=== PATIENT | male | born 1990 | race Caucasian/White ===

== ENCOUNTER 2021-03-27 21:24 | Emergency (ER) | payer SELFPAY ==
[~2021-03-27] VITALS: Ht 190.5 cm; Wt 90.7 kg
[~2021-03-27 21:24] MED LIST: ZANTAC150 MG PO
== END 2021-03-27 23:00 | disposition left against medical advice (07) ==
LOC: ED 21:24
DX: H57.11 Ocular pain, right eye (principal); R06.02 Shortness of breath; Z53.21 Procedure and treatment not carried out due to patient leaving prior to being seen by health care provider

== ENCOUNTER 2021-10-12 20:45 | Emergency (ER) | payer OTHER ==
[~2021-10-12] VITALS: Ht 190.5 cm; Wt 99.8 kg
[2021-10-12] MEDS ORDERED: ADDERALL 20 MG20 MG PO (20:55)
[2021-10-12 21:41] LABS: BASO % 0.3 % (0.0-1.0); EOS # 0.1 10*3/uL (0.0-0.4); EOS % 0.9 % (1.0-4.0); HEMATOCRIT 41.4 % (42.0-52.0); LYMPH # 2.1 10*3/uL (1.3-4.4); LYMPH % 28.1 % (27.0-41.0); MEAN CELL VOLUME 84.7 fl (80.0-94.0); MEAN CORPUSCULAR HGB 30.1 pg (27.0-31.0); MEAN CORPUSCULAR HGB CONC 35.5 g/dl (33.0-37.0); MEAN PLATELET VOLUME 10.2 fl (9.6-12.3); MONO # 0.8 10*3/uL (0.1-1.0); MONO % 10.8 % (3.0-9.0); NEUT # 4.5 10*3/uL (2.3-7.9); NEUT % 59.8 % (47.0-73.0); PLATELET COUNT AUTOMATED 353 10*3/uL (130-400); RED BLOOD COUNT 4.89 10*6/uL (4.50-5.90); RED CELL DISTRI WIDTH 12.4 % (0-14.5); WHITE BLOOD COUNT 7.5 10*3/uL (4.8-10.8)
[2021-10-12 21:57] LABS: ALKALINE PHOSPHATASE 62 U/L (45-117); BUN 21 mg/dl (7-24); CHLORIDE 107 mmol/L (98-107); POTASSIUM 3.5 mmol/L (3.5-5.1); SGOT/AST 103 IU/L (3-35); SGPT/ALT 214 U/L (12-78); SODIUM 141 mmol/L (136-145); TOTAL PROTEIN 7.4 gm/dL (6.4-8.2)
[2021-10-12] MEDS ORDERED: KENALOG 0.025%15 GM T (22:11)
== END 2021-10-12 22:24 | disposition home or self-care (01) ==
LOC: ED 20:45
PROVIDERS: Physician Assistant
DX: T65.891A Toxic effect of other specified substances, accidental (unintentional), initial encounter (principal); T20.55XA Corrosion of first degree of scalp [any part], initial encounter; Y92.89 Other specified places as the place of occurrence of the external cause

== ENCOUNTER 2024-01-22 14:22 | Inpatient (IN) | payer SELFPAY ==
[~2024-01-22] VITALS: Ht 190.5 cm; Wt 93.0 kg
[~2024-01-22 14:22] MED LIST changes: +ADDERALL 20 MG20 MG PO; +KENALOG 0.025%15 GM T
[2024-01-22 14:29] VITALS: BP 113/91
[2024-01-22] MEDS ORDERED: SODIUM CHLORIDE 0.9% 1,000 ML IV ONE (14:45)
[2024-01-22] MEDS ORDERED: MORPHINE Sulfate 2 MG/ML SYR IV ONE (14:45)
[2024-01-22] MEDS ORDERED: IOHEXOL 300 MG/ML 100 ML VIAL IV ONE (14:50)
[2024-01-22] MEDS ORDERED: Ondansetron Hydrochloride 4 MG/2 ML VIAL IV ONE (15:10)
[2024-01-22 15:22] LABS: BASO % 0.1 % (0.0-1.0); HEMATOCRIT 38.8 % (42.0-52.0); LYMPH # 2.4 10*3/uL (1.3-4.4); LYMPH % 31.8 % (27.0-41.0); MEAN CELL VOLUME 84.3 fl (80.0-94.0); MEAN CORPUSCULAR HGB 29.8 pg (27.0-31.0); MEAN CORPUSCULAR HGB CONC 35.3 g/dl (33.0-37.0); MONO # 1.4 10*3/uL (0.1-1.0); MONO % 17.7 % (3.0-9.0); NEUT # 3.8 10*3/uL (2.3-7.9); NEUT % 50.1 % (47.0-73.0); PLATELET COUNT AUTOMATED 257 10*3/uL (130-400); RED CELL DISTRI WIDTH 12.2 % (0-14.5); WHITE BLOOD COUNT 7.7 10*3/uL (4.8-10.8)
[2024-01-22 15:44] LABS: ALKALINE PHOSPHATASE 56 U/L (46-116); BUN 18 mg/dl (9-23); CHLORIDE 104 mmol/L (98-107); LIPASE 25 U/L (12-53); POTASSIUM 3.3 mmol/L (3.4-5.1); SGPT/ALT 28 U/L (5-49); TOTAL PROTEIN 6.5 gm/dL (6.0-8.0)
[2024-01-22 15:47] LABS: ETHYL ALCOHOL < 3.0 mg/dl (<3)
[2024-01-22] MEDS ORDERED: HYDROmorphONE Hydrochloride 0.5 MG/0.5 ML SYRINGE IV ONE (17:10)
[2024-01-22 17:16] VITALS: BP 97/45
[2024-01-22] MEDS ORDERED: MAGNESIUM SULFATE 100 ML IV ONE (18:50)
[2024-01-22] MEDS ORDERED: POTASSIUM CHLORIDE IN WATER 100 ML IV SCH (19:00)
[2024-01-22 19:32] VITALS: BP 99/54
[2024-01-22] MEDS ORDERED: SODIUM CHLORIDE 0.9% 500 ML IV ONE ×2 (19:50→21:55)
[2024-01-22] MEDS ORDERED: Dicyclomine Hydrochloride 20 MG TAB PO SCH (20:40)
[2024-01-22] MEDS ORDERED: SODIUM CHLORIDE 0.9% 1,000 ML IV SCH (21:45)
[2024-01-22] MEDS ORDERED: Ciprofloxacin Hydrochloride 500 MG TAB PO SCH (22:00)
[2024-01-23] VITALS (8 sets, daily range): BP systolic 83–111; BP diastolic 34–62
[2024-01-23] MEDS ORDERED: Ketorolac Tromethamine 15 MG/ML VIAL IV SCH
[2024-01-23 00:17] LABS: URINE AMPHETAMINES Positive (1000ng/ml); URINE BARBITURATES Negative (200ng/ml); URINE BENZODIAZEPINES Negative (200ng/ml); URINE CANNABINOIDS (THC) Negative (50ng/ml); URINE COCAINE Negative (300ng/ml); URINE METHADONE Negative (300ng/ml); URINE OPIATES Positive (300ng/ml); URINE PHENCYCLIDINE Negative (25ng/ml)
[2024-01-23 06:33] LABS: HEMATOCRIT 36.1 % (42.0-52.0); MEAN CELL VOLUME 86.8 fl (80.0-94.0); MEAN CORPUSCULAR HGB 29.3 pg (27.0-31.0); MEAN CORPUSCULAR HGB CONC 33.8 g/dl (33.0-37.0); MEAN PLATELET VOLUME 10.1 fl (9.6-12.3); PLATELET COUNT AUTOMATED 188 10*3/uL (130-400); RED BLOOD COUNT 4.16 10*6/uL (4.50-5.90); RED CELL DISTRI WIDTH 12.5 % (0-14.5); WHITE BLOOD COUNT 3.8 10*3/uL (4.8-10.8)
[2024-01-23 06:37] LABS: MANUAL DIFF REFLEX YES
[2024-01-23 07:06] LABS: BUN 13 mg/dl (9-23); CHLORIDE 108 mmol/L (98-107); POTASSIUM 3.8 mmol/L (3.4-5.1)
[2024-01-23 07:33] LABS: BASOPHILS 1 % (0-1); TOTAL CELLS COUNTED 100 #CELLS
[2024-01-23 07:34] LABS: PLATELET SUFFICIENCY NORMAL (NORMAL)
[2024-01-23] MEDS ORDERED: Ondansetron Hydrochloride 4 MG/2 ML VIAL IV PRN (09:00)
[2024-01-23] MEDS ORDERED: METRONIDAZOLE 500 MG TAB PO SCH (12:00)
[2024-01-23] MEDS ORDERED: ACETAMINOPHEN 500 MG TAB PO SCH (14:00)
[2024-01-23] MEDS ORDERED: SODIUM CHLORIDE 0.9% 1,000 ML IV ONE ×2 (14:55→16:15)
[2024-01-24] VITALS: BP 94/45
[2024-01-24 06:17] LABS: BUN 10 mg/dl (9-23); CHLORIDE 113 mmol/L (98-107); POTASSIUM 3.4 mmol/L (3.4-5.1)
[2024-01-24 06:20] LABS: HEMATOCRIT 32.8 % (42.0-52.0); MEAN CELL VOLUME 84.5 fl (80.0-94.0); MEAN CORPUSCULAR HGB 30.2 pg (27.0-31.0); MEAN CORPUSCULAR HGB CONC 35.7 g/dl (33.0-37.0); MEAN PLATELET VOLUME 10.8 fl (9.6-12.3); PLATELET COUNT AUTOMATED 171 10*3/uL (130-400); RED BLOOD COUNT 3.88 10*6/uL (4.50-5.90); RED CELL DISTRI WIDTH 12.5 % (0-14.5); WHITE BLOOD COUNT 4.1 10*3/uL (4.8-10.8)
[2024-01-24 06:31] LABS: MANUAL DIFF REFLEX YES
[2024-01-24 07:29] LABS: TOTAL CELLS COUNTED 100 #CELLS
[2024-01-24 07:30] LABS: PLATELET SUFFICIENCY NORMAL (NORMAL)
[2024-01-24 08:00] VITALS: BP 100/50
[2024-01-24 12:00] VITALS: BP 118/78
[2024-01-24 16:00] VITALS: BP 115/59
[2024-01-24] MEDS ORDERED: CALCIUM (TUMS) 500MG PO PRN (16:55)
[2024-01-24] MEDS ORDERED: HYDROmorphONE Hydrochloride 0.5 MG/0.5 ML SYRINGE IV PRN (21:25)
[2024-01-25] VITALS: BP 122/72
[2024-01-25 05:07] LABS: HBSAG Negative (Negative); HEP B CORE AB, IGM Negative (Negative); HEPATITIS C ANTIBODY Non Reactive (Non Reactive)
[2024-01-25 05:10] LABS: CHLORIDE 111 mmol/L (98-107); LIPASE 40 U/L (12-53); POTASSIUM 3.2 mmol/L (3.4-5.1)
[2024-01-25 05:23] LABS: BUN < 5 mg/dl (9-23)
[2024-01-25 06:01] LABS: BASO % 0.3 % (0.0-1.0); EOS # 0.1 10*3/uL (0.0-0.4); EOS % 1.3 % (1.0-4.0); HEMATOCRIT 32.8 % (42.0-52.0); LYMPH # 1.9 10*3/uL (1.3-4.4); LYMPH % 29.6 % (27.0-41.0); MEAN CELL VOLUME 84.3 fl (80.0-94.0); MEAN CORPUSCULAR HGB 29.3 pg (27.0-31.0); MEAN CORPUSCULAR HGB CONC 34.8 g/dl (33.0-37.0); MEAN PLATELET VOLUME 11.5 fl (9.6-12.3); MONO # 0.7 10*3/uL (0.1-1.0); MONO % 10.4 % (3.0-9.0); NEUT # 3.6 10*3/uL (2.3-7.9); NEUT % 57.9 % (47.0-73.0); RED BLOOD COUNT 3.89 10*6/uL (4.50-5.90); RED CELL DISTRI WIDTH 12.5 % (0-14.5); WHITE BLOOD COUNT 6.2 10*3/uL (4.8-10.8)
[2024-01-25 07:11] LABS: PLATELET COUNT AUTOMATED 241 10*3/uL (130-400)
[2024-01-25 08:00] VITALS: BP 122/66
[2024-01-25] MEDS ORDERED: CALCIUM (TUMS) 500MG PO PRN (09:53)
[2024-01-25] MEDS ORDERED: HYDROmorphONE Hydrochloride 1 MG/ML SYR IV PRN (09:53)
[2024-01-25] MEDS ORDERED: IOHEXOL 300 MG/ML 100 ML VIAL IV ONE (10:10)
[2024-01-25] MEDS ORDERED: POTASSIUM CHLORIDE IN WATER 100 ML IV SCH (11:00)
[2024-01-25] MEDS ORDERED: BARIUM SULFATE 2% 450 ML BOT PO SCH (11:00)
[2024-01-25 12:00] VITALS: BP 119/69
[2024-01-25 16:00] VITALS: BP 116/71
[2024-01-25] MEDS ORDERED: Pantoprazole Sodium 40 MG VIAL IV SCH (18:00)
[2024-01-25 20:00] VITALS: BP 125/74
[2024-01-26 05:54] LABS: CHLORIDE 108 mmol/L (98-107); POTASSIUM 3.1 mmol/L (3.4-5.1)
[2024-01-26 05:57] LABS: BUN < 5 mg/dl (9-23)
[2024-01-26 06:09] LABS: BASO % 0.6 % (0.0-1.0); EOS # 0.1 10*3/uL (0.0-0.4); EOS % 1.7 % (1.0-4.0); HEMATOCRIT 34.5 % (42.0-52.0); LYMPH # 1.9 10*3/uL (1.3-4.4); LYMPH % 26.4 % (27.0-41.0); MEAN CELL VOLUME 82.3 fl (80.0-94.0); MEAN CORPUSCULAR HGB 29.8 pg (27.0-31.0); MEAN CORPUSCULAR HGB CONC 36.2 g/dl (33.0-37.0); MEAN PLATELET VOLUME 10.8 fl (9.6-12.3); MONO # 0.7 10*3/uL (0.1-1.0); MONO % 9.3 % (3.0-9.0); NEUT # 4.2 10*3/uL (2.3-7.9); NEUT % 59.4 % (47.0-73.0); PLATELET COUNT AUTOMATED 295 10*3/uL (130-400); RED BLOOD COUNT 4.19 10*6/uL (4.50-5.90); RED CELL DISTRI WIDTH 12.6 % (0-14.5)
[2024-01-26 08:00] VITALS: BP 108/60
[2024-01-26] MEDS ORDERED: POTASSIUM CHLORIDE 20 MEQ TAB PO ONE (11:25)
[2024-01-26 12:00] VITALS: BP 133/75
[2024-01-26] MEDS ORDERED: POTASSIUM CHLORIDE IN WATER 100 ML IV SCH (12:00)
[2024-01-26 16:00] VITALS: BP 122/63
[2024-01-26 17:07] LABS: TB1 Ag VALUE 0.04 IU/mL (.)
[2024-01-26 20:00] VITALS: BP 115/66
[2024-01-27] VITALS: BP 118/64
[2024-01-27 06:51] LABS: HEMATOCRIT 36.6 % (42.0-52.0); MEAN CELL VOLUME 83.4 fl (80.0-94.0); MEAN CORPUSCULAR HGB 30.1 pg (27.0-31.0); MEAN CORPUSCULAR HGB CONC 36.1 g/dl (33.0-37.0); MEAN PLATELET VOLUME 10.4 fl (9.6-12.3); PLATELET COUNT AUTOMATED 316 10*3/uL (130-400); RED BLOOD COUNT 4.39 10*6/uL (4.50-5.90); RED CELL DISTRI WIDTH 12.7 % (0-14.5); WHITE BLOOD COUNT 6.1 10*3/uL (4.8-10.8)
[2024-01-27 06:52] LABS: MANUAL DIFF REFLEX YES
[2024-01-27 07:31] LABS: ATYPICAL LYMPHS 1 % (0-0); TOTAL CELLS COUNTED 100 #CELLS
[2024-01-27 07:32] LABS: PLATELET SUFFICIENCY NORMAL (NORMAL)
[2024-01-27 07:59] LABS: CHLORIDE 108 mmol/L (98-107); POTASSIUM 3.6 mmol/L (3.4-5.1)
[2024-01-27 08:00] VITALS: BP 122/70
[2024-01-27 08:03] LABS: BUN < 5 mg/dl (9-23)
[2024-01-27 12:00] VITALS: BP 122/64
== END 2024-01-27 14:57 | disposition home or self-care (01) | DRG 872 ==
LOC: ED 14:22 → EDHOLD 18:58 → 4E 18:58 → EDHOLD 21:57 → 4E 01-23 16:58
PROVIDERS: Internal Medicine; Internal Medicine Infectious Disease; ADMIT Internal Medicine; ATTEND Internal Medicine
DX: A41.9 Sepsis, unspecified organism (principal); E87.1 Hypo-osmolality and hyponatremia; N17.9 Acute kidney failure, unspecified; E87.20 Acidosis, unspecified; K21.9 Gastro-esophageal reflux disease without esophagitis; E11.9 Type 2 diabetes mellitus without complications; E86.0 Dehydration; E86.1 Hypovolemia; F98.8 Other specified behavioral and emotional disorders with onset usually occurring in childhood and adolescence; E87.6 Hypokalemia; A08.4 Viral intestinal infection, unspecified; Z79.01 Long term (current) use of anticoagulants; Z79.899 Other long term (current) drug therapy; Z79.2 Long term (current) use of antibiotics; Z83.3 Family history of diabetes mellitus

== ENCOUNTER 2024-08-10 03:22 | Emergency (ER) | payer OTHER ==
[~2024-08-10] VITALS: Ht 190.5 cm; Wt 90.7 kg
[2024-08-10] MEDS ORDERED: VIBRAMYCIN100 MG PO (05:41)
[2024-08-10] MEDS ORDERED: Tdap Vaccine 0.5 ML SYR (Adult Vaccine) IM ONE (05:45)
== END 2024-08-10 06:17 | disposition home or self-care (01) ==
LOC: ED 03:22
DX: L03.012 Cellulitis of left finger (principal); K21.9 Gastro-esophageal reflux disease without esophagitis

== ENCOUNTER 2024-12-14 17:06 | Emergency (ER) | payer OTHER ==
[~2024-12-14] VITALS: Ht 190.5 cm; Wt 90.7 kg
[~2024-12-14 17:06] MED LIST changes: +VIBRAMYCIN100 MG PO
[2024-12-14 17:51] LABS: BASO % 0.4 % (0.0-1.0); EOS # 0.4 10*3/uL (0.0-0.4); EOS % 5.4 % (1.0-4.0); HEMATOCRIT 43.9 % (42.0-52.0); MEAN CELL VOLUME 83.5 fl (80.0-94.0); MEAN CORPUSCULAR HGB 27.9 pg (27.0-31.0); MEAN CORPUSCULAR HGB CONC 33.5 g/dl (33.0-37.0); MEAN PLATELET VOLUME 9.4 fl (9.6-12.3); MONO # 0.8 10*3/uL (0.1-1.0); NEUT # 3.5 10*3/uL (2.3-7.9); NEUT % 48.8 % (47.0-73.0); PLATELET COUNT AUTOMATED 310 10*3/uL (130-400); RED BLOOD COUNT 5.26 10*6/uL (4.50-5.90); WHITE BLOOD COUNT 7.2 10*3/uL (4.8-10.8)
[2024-12-14 18:22] LABS: BUN 9 mg/dl (9-23); CHLORIDE 104 mmol/L (98-107); POTASSIUM 3.8 mmol/L (3.4-5.1)
[2024-12-14] MEDS ORDERED: VIBRAMYCIN100 MG PO (18:26)
== END 2024-12-14 18:23 | disposition left against medical advice (07) ==
LOC: ED 17:06
PROVIDERS: Nurse Practitioner Family
DX: L02.413 Cutaneous abscess of right upper limb (principal); L02.211 Cutaneous abscess of abdominal wall; Z79.899 Other long term (current) drug therapy

== ENCOUNTER 2025-01-29 23:24 | Emergency (ER) | payer OTHER ==
[~2025-01-29] VITALS: Ht 190.5 cm; Wt 85.9 kg
[2025-01-30] MEDS ORDERED: diazePAM 10 MG/2 ML SYR IV ONE (01:00)
[2025-01-30] MEDS ORDERED: SODIUM CHLORIDE 0.9% 1,000 ML IV ONE (04:05)
[2025-01-30 04:48] LABS: URINE AMPHETAMINES Negative (1000ng/ml); URINE BARBITURATES Negative (200ng/ml); URINE BENZODIAZEPINES Negative (200ng/ml); URINE CANNABINOIDS (THC) Negative (50ng/ml); URINE COCAINE Negative (300ng/ml); URINE METHADONE Negative (300ng/ml); URINE OPIATES Negative (300ng/ml); URINE PHENCYCLIDINE Negative (25ng/ml)
[2025-01-30 04:48] LABS: BASO # 0.0 10*3/uL (0.0-0.1); BASO % 0.2 % (0.0-1.0); EOS # 0.0 10*3/uL (0.0-0.4); EOS % 0.0 % (1.0-4.0); MEAN CELL VOLUME 81.3 fl (80.0-94.0); MEAN CORPUSCULAR HGB 27.6 pg (27.0-31.0); MEAN PLATELET VOLUME 10.1 fl (9.6-12.3); MONO # 0.3 10*3/uL (0.1-1.0); MONO % 2.2 % (3.0-9.0); NEUT # 13.5 10*3/uL (2.3-7.9); NEUT % 88.8 % (47.0-73.0); NUCLEATED RED BLOOD CELL 0.0 % (0.0-0.0); NUCLEATED RED BLOOD CELL 0.0 10*3/uL (0.0-0.0); PLATELET COUNT AUTOMATED 282 10*3/uL (130-400); RED CELL DISTRI WIDTH 12.2 % (0-14.5)
[2025-01-30 04:55] LABS: BILIRUBIN Negative (Negative); BLOOD Negative (Negative); CLARITY Clear (Clear); COLOR Dark Yellow (Yellow); KETONE Trace (Negative); LEUKO ESTERASE Negative (Negative); NITRITE Negative (Negative); PH 7.5 (4.5-8.0); SPECIFIC GRAVITY 1.020 (1.001-1.030); UROBILINOGEN 2.0 E.U./dl (0.0-1.0)
[2025-01-30 05:04] LABS: BUN 11 mg/dl (9-23); CPK 28 U/L (34-171); MYOGLOBIN 40.0 ng/ml (16-116); SGPT/ALT 34 U/L (5-49)
[2025-01-30] MEDS ORDERED: CYCLOBENZAPRINE10 MG PO (07:03)
== END 2025-01-30 07:15 | disposition home or self-care (01) ==
LOC: ED 23:24
PROVIDERS: Emergency Medicine
DX: S29.012A Strain of muscle and tendon of back wall of thorax, initial encounter (principal); S20.214A Contusion of middle front wall of thorax, initial encounter; R50.9 Fever, unspecified; Z79.899 Other long term (current) drug therapy; X58.XXXA Exposure to other specified factors, initial encounter; Y93.89 Activity, other specified; Y92.89 Other specified places as the place of occurrence of the external cause; Y99.8 Other external cause status

== ENCOUNTER 2025-02-01 00:14 | Emergency (ER) | payer OTHER ==
[~2025-02-01] VITALS: Ht 190.5 cm; Wt 99.8 kg
[~2025-02-01 00:14] MED LIST changes: +CYCLOBENZAPRINE10 MG PO
[2025-02-01] MEDS ORDERED: SODIUM CHLORIDE 0.9% 1,000 ML IV ONE (00:40)
[2025-02-01 00:56] LABS: BASO # 0.0 10*3/uL (0.0-0.1); BASO % 0.1 % (0.0-1.0); EOS # 0.0 10*3/uL (0.0-0.4); EOS % 0.0 % (1.0-4.0); MEAN CELL VOLUME 83.4 fl (80.0-94.0); MEAN CORPUSCULAR HGB 27.7 pg (27.0-31.0); MEAN PLATELET VOLUME 10.0 fl (9.6-12.3); MONO # 1.5 10*3/uL (0.1-1.0); MONO % 10.7 % (3.0-9.0); NEUT # 10.6 10*3/uL (2.3-7.9); NEUT % 75.6 % (47.0-73.0); NUCLEATED RED BLOOD CELL 0.0 % (0.0-0.0); NUCLEATED RED BLOOD CELL 0.0 10*3/uL (0.0-0.0); PLATELET COUNT AUTOMATED 330 10*3/uL (130-400); RED CELL DISTRI WIDTH 13.0 % (0-14.5)
[2025-02-01] MEDS ORDERED: SODIUM CHLORIDE 0.9% 1,000 ML IV SCH (01:10)
[2025-02-01 01:14] LABS: BUN 16 mg/dl (9-23); ETHYL ALCOHOL < 3.0 mg/dl (<3)
[2025-02-01 01:29] LABS: BILIRUBIN Negative (Negative); BLOOD Negative (Negative); CLARITY Clear (Clear); COLOR Dark Yellow (Yellow); KETONE Negative (Negative); LEUKO ESTERASE Negative (Negative); NITRITE Negative (Negative); PH 5.5 (4.5-8.0); SPECIFIC GRAVITY 1.025 (1.001-1.030); UROBILINOGEN 1.0 E.U./dl (0.0-1.0)
[2025-02-01 01:37] LABS: URINE AMPHETAMINES Negative (1000ng/ml); URINE BARBITURATES Negative (200ng/ml); URINE BENZODIAZEPINES Negative (200ng/ml); URINE CANNABINOIDS (THC) Negative (50ng/ml); URINE COCAINE Negative (300ng/ml); URINE METHADONE Negative (300ng/ml); URINE OPIATES Negative (300ng/ml); URINE PHENCYCLIDINE Negative (25ng/ml)
[2025-02-01 01:41] LABS: BACTERIA 1+; HYALINE CAST 0-2; MUCOUS 1+; RBC 0-2 rbc/hpf (0-2)
[2025-02-01] MEDS ORDERED: MAGNESIUM CITRATE 296 ML BOT PO ONE (05:15)
== END 2025-02-01 05:19 | disposition home or self-care (01) ==
LOC: ED 00:14
PROVIDERS: Internal Medicine
DX: K59.00 Constipation, unspecified (principal); R11.2 Nausea with vomiting, unspecified

== ENCOUNTER → 2025-02-19 | Outpatient (CLI) | payer SELFPAY ==
[2025-02-19 15:00] LABS: MEAN CELL VOLUME 84.7 fl (80.0-94.0); MEAN CORPUSCULAR HGB 26.4 pg (27.0-31.0); MEAN PLATELET VOLUME 8.5 fl (9.6-12.3); NUCLEATED RED BLOOD CELL 0.0 % (0.0-0.0); NUCLEATED RED BLOOD CELL 0.0 10*3/uL (0.0-0.0); PLATELET COUNT AUTOMATED 592.0 10*3/uL (130-400); RED CELL DISTRI WIDTH 14.0 % (0-14.5)
[2025-02-19 15:35] LABS: BUN 11 mg/dl (9-23); LDL CHOLESTEROL 57 mg/dL (9-159); SGPT/ALT 50 U/L (5-49)
[2025-02-19 15:38] LABS: VITAMIN D, 25-HYDROXY 33.8 ng/mL (30-100)
== END | disposition home or self-care (01) ==
LOC: LAB 14:37
PROVIDERS: ATTEND Family Medicine
DX: R06.02 Shortness of breath (principal); R53.83 Other fatigue; K75.9 Inflammatory liver disease, unspecified

== ENCOUNTER 2025-05-31 17:48 | Emergency (ER) | payer SELFPAY ==
[~2025-05-31] VITALS: Ht 190.5 cm; Wt 90.7 kg
[2025-05-31] MEDS ORDERED: Rabies Vaccine 1 ML VIAL IM ONE (17:55)
[2025-05-31] MEDS ORDERED: Amoxicillin/Clavulanate Pota 875 MG TAB PO ONE (17:55)
[2025-05-31] MEDS ORDERED: AMOX-CLAV 875-1 EACH PO (17:56)
== END 2025-05-31 18:46 | disposition home or self-care (01) ==
LOC: ED 17:48
DX: S51.852A Open bite of left forearm, initial encounter (principal); K21.9 Gastro-esophageal reflux disease without esophagitis; W54.0XXA Bitten by dog, initial encounter; Y93.89 Activity, other specified; Y92.89 Other specified places as the place of occurrence of the external cause; Y99.8 Other external cause status